=== PATIENT | male | born 1990 | race Caucasian/White ===

== ENCOUNTER 2016-11-26 19:26 | Emergency (ER) | payer SELFPAY ==
[~2016-11-26] VITALS: Ht 190.5 cm; Wt 79.4 kg
[2016-11-26 19:48] VITALS: BP 121/81
[2016-11-26] MEDS ORDERED: NAPR500T PO (20:22)
[2016-11-26] MEDS ORDERED: HYDR-2678 PO (20:22)
[2016-11-26] MEDS ORDERED: PENI500T PO (20:22)
--- NOTE | 2016-11-26 20:22 | PHYS DOC ---
Past History Past Medical History: No Pertinent History Past Surgical History: No Surgical History Alcohol Use: None Drug Use: None Adult General Chief Complaint Chief Complaint: DENTAL PROBLEM HPI HPI He is a pleasant 26 showed otherwise healthy male with a known history of dentition problems who presents with 4-5 days of right lower jaw pain. He fractured his tooth as enamels been eroded away by a dental carry about 5 or 6 weeks ago he's had increasing sharp pains with eating hot and cold foods as well as now localized pain without swelling to the right lower jaw. The pain is worse with chewing playing with the tooth itself at this time. He denies any fevers, chills, localized swelling to the chart face. Denies any direct trauma. He does have a relation up with his dentist as he has had fillings in the past before he understands that he will need a root canal but he is looking for some temporary treatment until he can follow up with his dentist on Monday. Patient denies any hearing loss vision changes problems with with taste or smell. Review of Systems Review of Systems Constitutional: Denies fever or chills [] Eyes: Denies change in visual acuity, redness, or eye pain [] HENT: Denies nasal congestion or sore throat [] Respiratory: Denies cough or shortness of breath [] Cardiovascular: No additional information not addressed in HPI [] GI: Denies abdominal pain, nausea, vomiting, bloody stools or diarrhea [] : Denies dysuria or hematuria [] Musculoskeletal: Denies back pain or joint pain [] Integument: Denies rash or skin lesions [] Neurologic: Denies headache, focal weakness or sensory changes [] Endocrine: Denies polyuria or polydipsia [] Allergies Allergies Allergies Coded Allergies Type Severity Reaction Last Updated Verified No Known Drug Allergies 07/02/15 No Physical Exam Physical Exam Constitutional: Well developed, well nourished, no acute distress, non-toxic appearance. [] HENT: Normocephalic, atraumatic, bilateral external ears normal, oropharynx moist, no oral exudates, nose normal. Oropharynx demonstrates marked dental caries with enamel erosion on the buccal surface of tooth #31. There is significant gingival. Inflammation without abscess formation. [] Eyes: PERRLA, EOMI, conjunctiva normal, no discharge. [] Neck: Normal range of motion, no tenderness, supple, no stridor. [] Cardiovascular:Heart rate regular rhythm, no murmur [] Lungs & Thorax: Bilateral breath sounds clear to auscultation [] Psychologic: Affect normal, judgement normal, mood normal. [] Current Patient Data Vital Signs Vital Signs Date Time Temp Pulse Resp B/P (MAP) Pulse Ox O2 Delivery O2 Flow Rate FiO2 11/26/16 19:48 98.3 93 20 98 Room Air EKG EKG [] Radiology/Procedures Radiology/Procedures [] Course & Med Decision Making Course & Med Decision Making Pertinent Labs and Imaging studies reviewed. (See chart for details) [This patient has dental caries as evident by his physical exam] there is no obvious signs of dental abscess or gingival abscess at this time. Pain is localized to the demineralized area of enamel on tooth #31. Patient has follow- up with his dentist on Monday with treated with a course of antibiotics penicillin-based as well as pain medications and anti-inflammatories and precautions. He does smoke we talked about smoking cessation and the health benefits from that. Impression: Dental caries without gingival abscess or periapical abscess suspected. Disposition primary care doctor primary dentist precautions given. Dragon Disclaimer Dragon Disclaimer This chart was dictated in whole or in part using Voice Recognition software in a busy, high-work load, and often noisy Emergency Department environment. It may contain unintended and wholly unrecognized errors or omissions. Departure Departure: Impression: Primary Impression: Dental caries Disposition: HOME, SELF-CARE Condition: GOOD Referrals: PCP,NO (PCP) Patient Instructions: Dental Caries Additional Instructions: Please follow-up with your local dentist in the next 48 hours as pain medication and antibiotics will not fix the actual problem here is suffering from. 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 Please return for any new or increasing symptoms fevers greater than 102.2 local ice facial swelling or given any questions or concerns. Scripts Naproxen (NAPROSYN) 500 Mg Tablet 1 TAB PO BID, #20 TAB 1 Refill Prov: MARK TORRES MD 11/26/16 Hydrocodone/Acetaminophen (Lortab 5-325 mg Tablet) 1 Each Tablet 2 TAB PO PRN Q6HRS Y for PAIN, #14 TAB 0 Refills Prov: MARK TORRES MD 11/26/16 Penicillin V Potassium (PENICILLIN V POTASSIUM) 500 Mg Tablet 1 TAB PO QID, #40 TAB Prov: MARK TORRES MD 11/26/16 MARK TORRES MD November 26, 2016 20:22
== END 2016-11-26 20:27 | disposition home or self-care (01) ==
LOC: ER 19:26
DX: K02.9 Dental caries, unspecified (principal); K03.2 Erosion of teeth
CPT/HCPCS: 99283